=== PATIENT | female | born 1965 | race Caucasian/White ===

== ENCOUNTER 2018-08-14 13:39 | Emergency (ER) | payer OTHER ==
[~2018-08-14] VITALS: Ht 165.1 cm; Wt 59.0 kg
[2018-08-14 13:47] VITALS: BP 150/108
--- NOTE | 2018-08-14 13:58 | NUR ---
53 Y F BIB EMS C/O BILAT EYE PAIN, BLURRY VISION, AND REDNESS S/P BEING PEPPER SPRAYED BY FLOOR ASSEMBLER APPROX 30 MINS POSITION CLASSIFICATION MANAGER. INCONTINENT TO STOOL. BILAT EYES IRRIGATED BY EMS WITH 0.9% NS 300 ML. VSS. [id number]. BED IS DOWN, LOCKED, BED RAIL X 1, ERMD NOTIFIED. HX: ANXIETY RX: DENIES
--- NOTE | 2018-08-14 14:12 | NUR ---
ENCOURAGED PT TO GO TO BATHROOM AND WASH FACE WITH COPIOUS AMOUNT OF WATER. ALSO TO WASH SELF SHE HAD BM INCONTINENCE----AMBULATED TO RESTROOM WITH STEADY GAIT. ALMOST IMMENDIATELY WALKED RIGHT BACK OUT AND STATED SHE WILL NOT USE REGULAR WATER, "SHE NEEDS SPECIAL WATER THE FIREMEN USED". SALINE BOTTLE HANDED TO PT AND REFUSED AGAIN--- BRASS BOBBIN WINDER AT BEDSIDE SPEAKING WITH PT.
--- NOTE | 2018-08-14 14:19 | NUR ---
PAPER SCRUBS HANDED TO PT---REFUSING TO WASH, STATING SHE NEEDS ANTIBIOTICS
[2018-08-14] MEDS ORDERED: IBUPROFEN 600 MG TAB PO ONE (14:20)
--- NOTE | 2018-08-14 14:37 | NUR ---
HANDED PORTABLE PHONE UPON PT'S REQUEST.----PT REFUSES TO PUT ON PAPER SCRUBS SECURITY CALLED FOR CLEAN CLOTHING. PT REFUSING TO DISCHARGE STATED SHE SHOULD BE IN OBSERVATION FOR AT LEAST 2 HRS PROVIDOR NOTIFIED.
--- NOTE | 2018-08-14 14:44 | NUR ---
INSTRUCTED PT TO WASH WITH SOAP AND WATER AT HOME ---ALLOW FRESH AIR TO SOOTH FACE IF NECESSARY----AVOID FURTHER PEPPER SPRAY DC INSTRUCTIONS HANDED TO PT. PT REFUSED TO SIGN DC-- SECURITY AT BEDSIDE PT DEMANDED ANTIBIOTICS FOR FACE AND AT LEAST 2 HRS OF OBSERVATION
[2018-08-14 15:08] VITALS: BP 142/92
--- NOTE | 2018-08-14 15:09 | NUR ---
ESCORTED TO [facility] BY SECURITY---ALLOWED TO USE PHONE FOR TRANSPORTATION
== END 2018-08-14 17:24 | disposition home or self-care (01) ==
LOC: MED 13:39
DX: L24.5 Irritant contact dermatitis due to other chemical products (principal); Z88.2 Allergy status to sulfonamides
CPT/HCPCS: 99283

== ENCOUNTER 2018-12-07 20:31 | Emergency (ER) | payer MEDICAID, OTHER ==
[~2018-12-07] VITALS: Ht 165.1 cm; Wt 58.1 kg
[2018-12-07 20:33] VITALS: BP 124/90
--- NOTE | 2018-12-07 20:33 | NUR ---
PT PLACED INTO W/C AND SENT TO ER LOBBY TO WAIT FOR A BED.
--- NOTE | 2018-12-07 20:39 | NUR ---
PATIENT SPOKE TO ER ADMITTING, GOT UP FROM W/C AND LEFT ER LOBBY AND STATED "I'M GOING TO ANOTHER HOPSITAL." PATIENT LEFT WITHOUT BEING SEEN BY DR. MCCORMACK. NO FURTHER CARE PROVIDED FOR PATIENT.
== END 2018-12-07 20:39 | disposition left against medical advice (07) ==
LOC: MED 20:31
DX: R51 Headache (principal); Z53.21 Procedure and treatment not carried out due to patient leaving prior to being seen by health care provider

== ENCOUNTER 2019-08-08 07:28 | Emergency (ER) | payer MEDICAID ==
[~2019-08-08] VITALS: Ht 165.1 cm; Wt 56.7 kg
--- NOTE | 2019-08-08 07:28 | NUR ---
Patient BIBA BLS, transferred to bed 5. RN evaluating patient at bedside.
[2019-08-08 07:32] VITALS: BP 172/110
--- NOTE | 2019-08-08 07:39 | NUR ---
63/f biba c/o left facial pain & swelling. PT REPORTS "I WAS SPRAYED WITH PESTITCIDES TO MY FACE AND I HAVE BEEN POSIONED FROM IT AND IM SAVING THE REST FOR COURT" DENIES SI/HI. PATIENT STATES PAIN OF 03/07 AT THIS TIME. BP 172/110, o2 sat 100% at this time. PATIENT POSITIONED FOR COMFORT; HOB ELEVATED; BEDRAILS UP X2; BED DOWN. ER MADE AWARE OF PT STATUS. Addendum: 08/08/19 at 0744 by MED1 PT REPORTED SHE USED METH X YESTERDAY.
--- NOTE | 2019-08-08 07:56 | NUR ---
Patient being evaluated by DR JAIN at bedside.
[2019-08-08] MEDS ORDERED: methylPREDNISolone SS 125 MG/2 ML VIAL ONE (08:08)
[2019-08-08] MEDS: diphenhydrAMINE 50 MG/ML VIAL IM ONE (08:20)
[2019-08-08] MEDS: methylPREDNISolone SS 125 MG in WATER STERILE 2 ML IM ONE (08:26)
[2019-08-08] MEDS: KETOROLAC 60 MG/2 ML VIAL IM ONE (08:26)
--- NOTE | 2019-08-08 08:26 | NUR ---
medicated benadryl, solumedrol & toradol IM.
--- NOTE | 2019-08-08 09:18 | NUR ---
Patient appears to be SLEEPING comfortably in bed. Respirations even and unlabored.WILLCONTINUE TO MONITOR
--- NOTE | 2019-08-08 10:14 | NUR ---
FOOD TRAY PROVIDED FOR PATIENT AT THIS TIME. Addendum: 08/08/19 at 1023 [facility]. TJ N/V.
--- NOTE | 2019-08-08 10:37 | NUR ---
Patient discharged with v/s stable. Written and verbal after care instructions given and explained. Patient alert, oriented and verbalized understanding of instructions. Ambulatory with steady gait. All questions addressed prior to discharge. ID band removed. Patient advised to follow up with PMD. Rx of BENADRYL, AUGMENTIN, MOTRIN & PREDNISONE given. Patient educated on indication of medication including possible reaction and side effects. Opportunity to ask questions provided and answered.
[2019-08-08 10:38] VITALS: BP 131/81
== END 2019-08-08 10:37 | disposition home or self-care (01) ==
LOC: EDUNIT# 07:28 → MED 07:28
DX: L02.01 Cutaneous abscess of face (principal); F15.10 Other stimulant abuse, uncomplicated; Z88.2 Allergy status to sulfonamides; Z98.890 Other specified postprocedural states
CPT/HCPCS: 96372; 99284; J1200; J1885; J2930

== ENCOUNTER 2019-08-10 15:50 | Emergency (ER) | payer MEDICAID ==
[~2019-08-10] VITALS: Ht 165.1 cm; Wt 70.3 kg
--- NOTE | 2019-08-10 15:51 | NUR ---
PT. BIBA TAKEN TO BED 5
[2019-08-10 15:54] VITALS: BP 140/72
--- NOTE | 2019-08-10 16:00 | NUR ---
PT WAS B/B AMBULANCE FROM HOME FOR SI. PER JUNIOR ESTIMATOR, PT SPAY HERSELF, HAS WIRED BEHAVIOR. PT HAS PSCYCH HX. PD WAS ON SCENE AND PUT ON 5150. PT WAS A/OX4. FOLLOWS COMMAND, DENIES ANY PHYSICAL DISTRESS. PT WAS PUT ON BED 5, ALL CLOTHES WAS OFF AND TAKEN AWAY. PT IS QUIT AND COOPERATIVE. CO HUNGRY ONLY. SANDWITHC WAS OFFERED TO PT.
--- NOTE | 2019-08-10 16:06 | NUR ---
LAB AT BEDSIDE.
[2019-08-10 16:21] LABS: BASOPHILS % (AUTO) 0.6 % (0.0-2.0); EOSINOPHILS # (AUTO) 0.3 K/uL (0-0.4); EOSINOPHILS % (AUTO) 5.2 % (0.0-4.0); HEMATOCRIT 43.7 % (36-48); HEMOGLOBIN 14.4 g/dL (12.0-16.0); LYMPHOCYTES # (AUTO) 2.3 K/uL (2.5-16.5); LYMPHOCYTES % (AUTO) 34.7 % (20.5-51.1); MEAN CORPUSCULAR HEMOGLOBIN 29 pg (27-31); MEAN CORPUSCULAR HGB CONC 33 g/dL (33-37); MEAN CORPUSCULAR VOLUME 88.8 fL (80-94); MONOCYTES # (AUTO) 0.6 K/uL (0.8-1.0); MONOCYTES % (AUTO) 8.9 % (1.7-9.3); NEUTROPHILS # (AUTO) 3.4 K/uL (1.8-7.7); NEUTROPHILS % (AUTO) 50.6 % (42.2-75.2); PLATELET COUNT (AUTO) 429 K/uL (140-450); RED BLOOD CELL COUNT(AUTO) 4.91 MIL/uL (4.20-5.40); RED CELL DISTRIBUTION WIDTH 13.5 % (11.6-13.7); WHITE BLOOD COUNT (AUTO) 6.7 K/uL (4.8-10.8)
[2019-08-10 16:43] LABS: ALBUMIN 3.4 g/dL (3.4-5.0); ANION GAP 11.9 (8-16); ASPARTATE AMINOTRANSFERASE 26 U/L (15-37); CARBON DIOXIDE 30.8 mmol/L (21-32); CHLORIDE 103 mmol/L (98-107); CREATININE 0.9 mg/dL (0.6-1.3); GFR ARICAN-AMERICAN 84 mL/min (>90); GLUCOSE 92 mg/dL (74-106); POTASSIUM 3.7 mmol/L (3.5-5.1); SODIUM SERUM 142 mmol/L (136-145); TOTAL BILIRUBIN 0.5 mg/dL (0.0-1.0); UREA NITROGEN, BLOOD 15 mg/dL (7-18)
[2019-08-10 16:46] LABS: SALICYLATE < 2.8 mg/dL (2.8-20.0)
[2019-08-10 16:47] LABS: ACETAMINOPHEN < 0.5 ug/ml (10-30)
--- NOTE | 2019-08-10 17:29 | NUR ---
WATER OFFERED TO PT TO DRINK. URINE SAMPLE COLLECTED AND SENT TO LAB.
[2019-08-10 18:05] LABS: BARBITURATE, URINE NEGATIVE ng/ml (NEG <=200)
[2019-08-10 18:06] LABS: BENZODIAZEPINE, URINE NEGATIVE ng/mL (NEG <=200); CANNABINOID, URINE NEGATIVE ng/mL (NEG <=50); COCAINE, URINE NEGATIVE ng/mL (NEG <=300); OPIATE, URINE NEGATIVE ng/mL (NEG <=2000); PHENCYCLIDINE SCREEN,URINE NEGATIVE ng/mL (NEG <=25)
--- NOTE | 2019-08-10 18:45 | NUR ---
PT WAS ADMINISTERED WITH PAIN MEDICATION.
--- NOTE | 2019-08-10 18:53 | NUR ---
JACK OFFERED, PT ATE WELL THEN FALL INTO ASLEEPING.
--- NOTE | 2019-08-10 19:20 | NUR ---
received report from jessica mckay. will cont care at this time.
--- NOTE | 2019-08-10 19:39 | NUR ---
pt refusing telepsych and is getting agitated and shouting at er staff.
--- NOTE | 2019-08-10 19:48 | NUR ---
PT SPEAKING WITH TELEPSYCH AT THIS TIME.
--- NOTE | 2019-08-10 20:08 | NUR ---
PT OFFERED CARRIE AND CRACKERS AT THIS TIME
[2019-08-10 20:39] VITALS: BP 140/72
--- NOTE | 2019-08-10 20:39 | NUR ---
PT AGITATED WITH NEW INFORMATION FROM TELE PSYCH PLACING HER ON PSYCH-HOLD. PT EXITED THROUGH MAIN LOBBY AND LEFT FACILITY RUNNING IN [facility]. ATTEMPTS TO VERBALLY PERSUADE PT TO STAY WERE UNSUCCESSFUL. SECURITY NOTIFIED, VANESSA AYALA MADE AWARE @ 2034. Addendum: 08/10/19 at 2100 by YIMI ERROR CHARLEE AYALA
--- NOTE | 2019-08-10 20:40 | NUR ---
CHARLEE AYALA CALLED, PT LEFT ON FOOT OUT OF THE EMERGENCY DEPARTMENT.
--- NOTE | 2019-08-10 20:50 | NUR ---
CHARLEE AYALA FOUND PT AND TOOK INTO CUSTODY.
--- NOTE | 2019-08-10 20:55 | NUR ---
[place] PD IN ER, STATED THEY FOUND PT, REVIEWED THE 5150 HOLD AND PSYCH REPORT, AND MEDICAL CLEARANCE, GOMEZ NE TO TAKE PT.
--- NOTE | 2019-08-10 21:18 | NUR ---
pt belongings sent with ashok rubio
== END 2019-08-10 20:39 ==
LOC: MED 15:50
DX: R45.851 Suicidal ideations (principal); F41.9 Anxiety disorder, unspecified; F17.210 Nicotine dependence, cigarettes, uncomplicated; F12.90 Cannabis use, unspecified, uncomplicated; Z88.2 Allergy status to sulfonamides; Z71.6 Tobacco abuse counseling
CPT/HCPCS: 36415; 80053; 80305; 85025; 93005; 99285; G0480; G0482

== ENCOUNTER 2021-06-17 21:46 | Emergency (ER) | payer MEDICAID ==
[~2021-06-17] VITALS: Ht 165.1 cm; Wt 56.7 kg
[2021-06-17 22:50] VITALS: BP 136/90
--- NOTE | 2021-06-17 22:50 | NUR ---
to lobby a/w bed ambulatory
--- NOTE | 2021-06-18 | NUR ---
SEEN AND EXAMINED BY LEON
[2021-06-18] MEDS ORDERED: PRED20TA5 PO (00:13)
[2021-06-18] MEDS ORDERED: IBUP-2213 PO (00:13)
--- NOTE | 2021-06-18 00:20 | NUR ---
NASAL SWAB FOR NOVEL SENT TO LAB
[2021-06-18] MEDS ORDERED: ALBU0.0912 IH (00:24)
[2021-06-18 00:25] VITALS: BP 124/81
--- NOTE | 2021-06-18 00:25 | NUR ---
Patient discharged with v/s stable. Written and verbal after care instructions given and explained. Patient alert, oriented and verbalized understanding of instructions. Ambulatory with steady gait. All questions addressed prior to discharge. ID band removed. Patient advised to follow up with PMD. Rx of MOTRIN. PREDNISONE given. Patient educated on indication of medication including possible reaction and side effects. Opportunity to ask questions provided and answered.
== END 2021-06-18 00:25 | disposition home or self-care (01) ==
LOC: MED 21:46
DX: R06.02 Shortness of breath (principal); R07.9 Chest pain, unspecified; Z20.822 Contact with and (suspected) exposure to COVID-19
CPT/HCPCS: 71045; 99284; U0003

== ENCOUNTER 2021-09-22 08:47 | Inpatient (IN) | payer MEDICAID ==
[~2021-09-22] VITALS: Ht 165.1 cm; Wt 54.4 kg
[~2021-09-22 08:47] MED LIST: ALBU0.0912 IH; IBUP-2213 PO; PRED20TA5 PO
--- NOTE | 2021-09-22 08:49 | NUR ---
VINCENT ROTH TAKEN TO BED 10
--- NOTE | 2021-09-22 08:51 | NUR ---
RT at bedside for ABG draw
[2021-09-22 08:52] VITALS: BP 148/110
--- NOTE | 2021-09-22 09:00 | NUR ---
56 Y/O F BIBA FROM [facility] C/O DIFFICULTY BREATHING SINCE LAST NIGHT. PER EMS PT WAS 85% O2 ON ROOM AIR. CURRENTLY SATTING 97% ON 2LPM NC, BILATERAL LOWR LUNG BASES WITH DIMINISHED BREATH SOUNDS, UPPER LOBES CLEAR. RECENTLY DISCHARGED FROM [place] FOR UNK REASON, PT STATES THAT THEY HAD UTI. RSPIRATIONS EVEN THOUGH TACHYPNEIC, NOTED WITH SWELLING ABOVE RIGHT EYEBROW. PATIENT APPEARS AGITATED SPEAKING IN A FAST PACE, COOPERATIVE TO CARE , A/OX4. NON COMPLIANT WITH MEDS. PLACED ON CAFE ASSOCIATE, BED IN HIGH FOWLERS POSITION. MEDHX: ASTHMA, CHF ALLERGIES: SULFA DRUGS HOME MEDS: LASIX, ALBUTEROL
--- NOTE | 2021-09-22 09:16 | NUR ---
HANDED URINE, FLORA AND FLU SWABS TO SENOIA ENGLISH TEACHER
--- NOTE | 2021-09-22 09:30 | NUR ---
RAD AT BEDSIDE
--- NOTE | 2021-09-22 09:31 | NUR ---
DR SHAVER ASKED IF PT COULD GET SOME ICECHIPS, DR SHAVER STATED "YES", PT OFFFERED ICE CHIPS FOR DRY MOUTH
[2021-09-22 09:40] LABS: BASOPHILS # (AUTO) 0.1 K/uL (0.00-0.22); BASOPHILS % (AUTO) 0.9 % (0.0-2.0); EOSINOPHILS # (AUTO) 0.1 K/uL (0-0.4); EOSINOPHILS % (AUTO) 0.8 % (0.0-4.0); HEMATOCRIT 39.6 % (36-48); HEMOGLOBIN 12.7 g/dL (12.0-16.0); LYMPHOCYTES # (AUTO) 1.3 K/uL (2.5-16.5); LYMPHOCYTES % (AUTO) 18.2 % (20.5-51.1); MEAN CORPUSCULAR HEMOGLOBIN 28 pg (27-31); MEAN CORPUSCULAR HGB CONC 32 g/dL (33-37); MEAN CORPUSCULAR VOLUME 87.3 fL (80-94); MONOCYTES # (AUTO) 0.6 K/uL (0.8-1.0); MONOCYTES % (AUTO) 8.1 % (1.7-9.3); NEUTROPHILS # (AUTO) 5.3 K/uL (1.8-7.7); PLATELET COUNT (AUTO) 392 K/uL (140-450); RED BLOOD CELL COUNT(AUTO) 4.54 MIL/uL (4.20-5.40); WHITE BLOOD COUNT (AUTO) 7.3 K/uL (4.8-10.8)
[2021-09-22 09:41] LABS: APPEARANCE,URINE SL CLOUDY (CLEAR); BILIRUBIN,URINE 1+ (NEGATIVE); BLOOD, URINE NEGATIVE (NEGATIVE); COLOR,URINE YELLOW (YELLOW); LEUKOCYTE ESTERASE ,URINE TRACE (NEGATIVE); NITRITE, URINE NEGATIVE (NEGATIVE); PH,URINE 5.5 (5.0-9.0); UGLUCOSE NEGATIVE (NEGATIVE)
[2021-09-22 10:00] LABS: RBC,URINE 0-5 /HPF (0-5)
[2021-09-22 10:01] LABS: TRICHOMONAS,URINE None Seen /HPF (None Seen); YEAST,URINE None Seen /HPF (None Seen)
[2021-09-22 10:01] LABS: ALBUMIN 3.6 g/dL (3.4-5.0); ANION GAP 15.7 (8-16); CARBON DIOXIDE 20.2 mmol/L (21-32); POTASSIUM 3.9 mmol/L (3.5-5.1); TOTAL BILIRUBIN 0.7 mg/dL (0.0-1.0)
[2021-09-22 10:02] LABS: COARSE GRANULAR CASTS,URINE 0-10 /LPF (None Seen); FINE GRANULAR CASTS,URINE None Seen /LPF (None Seen); HYALINE CASTS, URINE 0-10 /LPF (None Seen); OTHER CASTS, URINE None Seen /LPF (None Seen); OTHER CRYSTALS,URINE None Seen /HPF (None Seen); RED BLOOD CELL CASTS,URINE None Seen /LPF (None Seen); TRIPLE PHOSPHATE CRYSTAL,UR None Seen /HPF (None Seen); URIC ACID CRYSTALS,URINE None Seen /HPF (None Seen); URINE AMORPHOUS URATE None Seen /HPF (None Seen); WAXY CASTS,URINE None Seen /LPF (None Seen)
[2021-09-22 10:13] LABS: BARBITURATE, URINE NEGATIVE ng/ml (NEG <=200)
[2021-09-22 10:14] LABS: BENZODIAZEPINE, URINE POSITIVE ng/mL (NEG <=200); CANNABINOID, URINE NEGATIVE ng/mL (NEG <=50); COCAINE, URINE NEGATIVE ng/mL (NEG <=300); OPIATE, URINE NEGATIVE ng/mL (NEG <=2000); PHENCYCLIDINE SCREEN,URINE NEGATIVE ng/mL (NEG <=25)
--- NOTE | 2021-09-22 10:27 | NUR ---
DR SHAVER AT BEDSIDE
[2021-09-22] MEDS ORDERED: ALBUTEROL 0.083% 2.5 MG/3 ML NEBU INH ONE (10:30)
[2021-09-22] MEDS ORDERED: IPRATROPIUM 0.02% 0.5 MG/2.5 ML NEBU INH ONE (10:30)
--- NOTE | 2021-09-22 10:35 | NUR ---
RECEIVED ORDER TO ADMINISTER BREATHING TX TO BED #10. I ENTERED THE ROOM INTRODUCED MYSELF TO THE PATIENT AND CONFIRMED PATIENT IDENTITY. MS. GAMBOA, ALLOWED ME TO PLACE THE NEBULIZER ON HER, AFTER APPROXIMATELY 1 MIN, MS. GAMBOA BECAME VERY AGITATED AND WANTED TO SPEAK TO THE DR, BECAUSE THE PARAMEDICS HAD TOLD HER SHE SHOULDN'T HAVE A BREATHING TREATMENT. I EXPLAINED TO MS. GAMBOA, THE DR WAS THE ONE WHO ORDED THE TREATMENT FOR HER. MS. GAMBOA BECAME PROGRESSIVELY MORE AGITATED, AND ANGRY ABOUT THE BREATHING TREATMENT. AN ON AWAKE COUNSELOR ENTERED THE ROOM AT WHICH TIME MS. GAMBOA RIPPED OFF THE NEBULIZER, AND TOLD ME, "IF MRSA WAS IN HER RESPIRATORY IT WAS MY FAULT." I NOTIFIED DR. FALK AND THE PTS RN OF THE PT'S AGITATION AND TREATMENT REFUSAL. PT IS IN NO DISTRESS
[2021-09-22] MEDS ORDERED: DOCUSATE SODIUM 100 MG GELCAP PO PRN (10:50)
[2021-09-22] MEDS ORDERED: ACETAMINOPHEN 325 MG TAB PO PRN (10:50)
[2021-09-22] MEDS ORDERED: ONDANSETRON 4 MG/2 ML VIAL IM/IVP PRN (10:50)
[2021-09-22] MEDS ORDERED: ASPIRIN 325 MG TAB PO ONE (10:55)
[2021-09-22] MEDS ORDERED: FUROSEMIDE 40 MG/4 ML VIAL IVP SCH (10:55)
[2021-09-22] MEDS ORDERED: CARV3.12 PO (11:10)
[2021-09-22] MEDS ORDERED: PRED10TA5 PO (11:10)
[2021-09-22] MEDS ORDERED: BACITRACIN OINT 15000 UNITS/30 GM TUBE TP SCH (11:10)
[2021-09-22] MEDS ORDERED: BACITRACIN OINT 500 UNITS/GM PKT TP ONE (11:22)
[2021-09-22] MEDS ORDERED: BACITRACIN OP OINT 500 UNITS/GM 3.5 GM TUBE OP SCH (11:25)
[2021-09-22] MEDS ORDERED: OLANZapine 5 MG ODT PO ONE (11:25)
[2021-09-22 11:29] LABS: MAGNESIUM 2.5 mg/dL (1.8-2.4); PHOSPHORUS 4.6 mg/dL (2.5-4.9)
[2021-09-22 11:37] LABS: PROTHROMBIN TIME 11.3 secs (10.8-13.4)
[2021-09-22] MEDS ORDERED: CARV6.25 PO (11:39)
[2021-09-22] MEDS ORDERED: FURO-572 PO (11:39)
[2021-09-22] MEDS ORDERED: ASPI-1822 PO (11:39)
[2021-09-22] MEDS ORDERED: PRED20TA5 PO (11:39)
[2021-09-22] MEDS ORDERED: ALBU1.25 NEB (11:39)
[2021-09-22 11:55] LABS: THYROID STIMULATING HORMONE 0.17 uIU/mL (0.34-3.74)
--- NOTE | 2021-09-22 11:57 | NUR ---
Patient will be admitted to care of RAH WATKINS. Admited to TELEMETRY. Will go to room 105A. Belongings list completed. Report to PARTHA BONNER.
--- NOTE | 2021-09-22 12:13 | NUR ---
PT TRANSFERRED TO [facility] 105A. PT AMBULATORY, 4L NC SATING AT 97%. PT REFUSED LAB DRAWS BY FINANCIAL SALES REPRESENTATIVE. PT IS HOMELESS. NO S/S OF DISTRESS. PT SWABBED FOR MRSA. PT STATES SHE HAS MRSA IN SMALL SCRATCH AT LEFT BROW LINE. PT APPLIED TAPE TO BROW. CALL LIGHT IN REACH. ALL SAFETY MEASURES IN PLACE. NOTIFIED MD FOR ORDER FOR DIET.
--- NOTE | 2021-09-22 12:30 | NUR ---
PT HAS SCRATCH OVER LEFT EYE BROW. PT WILL NOT LET NURSES INSPECT OR BANDAGE.
--- NOTE | 2021-09-22 12:30 | NUR ---
PT HAS SCR
--- NOTE | 2021-09-22 13:11 | NUR ---
RECEIVED CALL FROM [employer]. RELAYED THAT PT LACTIC ACID IS 2.2. REPORTED CRITICAL VALUE TO DR. AARON, AND REPLIED TO PAGE RT. RELAYED THE MESSAGE TO FRANCESCA.
[2021-09-22] MEDS ORDERED: ALBUTEROL 0.083% 2.5 MG/3 ML NEBU INH PRN (13:35)
[2021-09-22 16:00] VITALS: BP 127/86
--- NOTE | 2021-09-22 16:20 | NUR ---
PT WAS FOUND YELLING AT HALLUCINATIONS AND HAD THROWN ALL BELONGINGS AND FOOD TRAY ON FLOOR. WILL NOTIFY MD, AND RECOMMEND PSYCH CONSULT
[2021-09-22] MEDS: FUROSEMIDE 20 MG/2 ML VIAL IVP SCH (17:00)
--- NOTE | 2021-09-22 17:25 | NUR ---
PT HALLUCINATING. PT STATED A MAN WAS TELLING HER SHE COULD NOT HAVE ANYTHING TO EAT AND WOULD NOT LET HER HAVE OXYGEN. PT HAD REMOVED NC. REAPPLIED NC AND REENFORCED EDUCATION ON WEARING NC PROPERLY. PT HAS REFUSED LAB DRAWS AND RESPIRATORY TREATMENTS TODAY. CALL LIGHT IN REACH. ALL SAFETY MEASURES IN PLACE
[2021-09-22] MEDS: LORazepam 2 MG/ML VIAL IM/IVP PRN (18:13)
--- NOTE | 2021-09-22 18:15 | NUR ---
GAVE ATIVAN PER DR'S ORDER. REPOSITIONED PT'S NC.
--- NOTE | 2021-09-22 19:00 | NUR ---
TELEPSYCH INFORMED OF NEW CONSULT. WAITING FOR APPOINTMENT TIME, WILL ENDORSE TO FRENCH EDGE OPERATOR
--- NOTE | 2021-09-22 19:31 | NUR ---
ENDORSED PT TO COAL PULVERIZING OPERATOR NURSE.
--- NOTE | 2021-09-22 19:35 | NUR ---
PATIENT'S BROTHER ASHVIN - TEL NO.: [phone] - BUT WHEN I CONFIRM THIS TO THE PT SHE SAID SHE CAN'T REMEMBER - WILL ENDORSE .
--- NOTE | 2021-09-22 19:40 | NUR ---
U/A - UTI - LACTIC ACID HIGH - WILL REFER TO DR. GUNDERSON . Addendum: 09/23/21 at 0819 by Gertrudis Olivo RN PER Lolis GUNDERSON - ILIANA 1 GRM TIV OD - WILL CARRY OUT .
[2021-09-22 20:00] VITALS: BP 90/60
[2021-09-22] MEDS: lisinopriL 10 MG TAB PO SCH (21:00)
[2021-09-22] MEDS ORDERED: cefTRIAXone 1,000 MG VIAL ONE (21:00)
[2021-09-22] MEDS ORDERED: LORazepam 1 MG TAB PO PRN (21:20)
--- NOTE | 2021-09-22 21:35 | NUR ---
PER PSYCH DR - IF PT IS TOO SLEEPY BEC. SHE GOT ATIVAN - THE DOCTOR WILL DO VIDEO VITALIY . AM - WILL ENDORSE .
[2021-09-23] VITALS: BP 122/85
--- NOTE | 2021-09-23 | NUR ---
PT IS ON LABORED BREATHING - O2 SAT WNL - ON CLOSELY WATCH .
[2021-09-23] MEDS: LORazepam 2 MG/ML VIAL IM/IVP PRN ×2 (03:48→19:46)
[2021-09-23 04:00] VITALS: BP 130/66
--- NOTE | 2021-09-23 05:17 | NUR ---
PT ON LABORED BREATHING - PER RT - WILL PUT ON BIPAP - WILL INFORM MD .
--- NOTE | 2021-09-23 05:17 | NUR ---
PT WAS FOUND SLEEPING AND PRESENTING W/ RETRACTIONS ON 3LNC (SPO2 100%) NIV WAS INITIATED DUE TO INCR WOB PT WAS PLACED ON AVAPS 400 +5 10-18 f16 28% WITH SPO2 97% RETRACTIONS APPEARED TO IMPROVE/RESOLVE WITH NIV BIPAP PLUGGED INTO RED OUTLET WITH ALARMS ON AND AUDIBLE WILL CONTINUE TO MONITOR
[2021-09-23 05:52] LABS: BASOPHILS % (AUTO) 0.3 % (0.0-2.0); EOSINOPHILS # (AUTO) 0.1 K/uL (0-0.4); EOSINOPHILS % (AUTO) 1.4 % (0.0-4.0); HEMATOCRIT 39.4 % (36-48); HEMOGLOBIN 12.9 g/dL (12.0-16.0); LYMPHOCYTES # (AUTO) 1.4 K/uL (2.5-16.5); LYMPHOCYTES % (AUTO) 17.7 % (20.5-51.1); MEAN CORPUSCULAR HEMOGLOBIN 28 pg (27-31); MEAN CORPUSCULAR HGB CONC 33 g/dL (33-37); MEAN CORPUSCULAR VOLUME 86.6 fL (80-94); MONOCYTES % (AUTO) 12.7 % (1.7-9.3); NEUTROPHILS # (AUTO) 5.2 K/uL (1.8-7.7); NEUTROPHILS % (AUTO) 67.9 % (42.2-75.2); PLATELET COUNT (AUTO) 397 K/uL (140-450); RED BLOOD CELL COUNT(AUTO) 4.54 MIL/uL (4.20-5.40); RED CELL DISTRIBUTION WIDTH 16.8 % (11.6-13.7); WHITE BLOOD COUNT (AUTO) 7.6 K/uL (4.8-10.8)
[2021-09-23 05:58] LABS: ALBUMIN 3.3 g/dL (3.4-5.0); ANION GAP 13.5 (8-16); CARBON DIOXIDE 26.4 mmol/L (21-32); CREATININE 1.3 mg/dL (0.6-1.3); MAGNESIUM 2.4 mg/dL (1.8-2.4); PHOSPHORUS 5.2 mg/dL (2.5-4.9); POTASSIUM 3.9 mmol/L (3.5-5.1); TOTAL BILIRUBIN 0.3 mg/dL (0.0-1.0)
--- NOTE | 2021-09-23 06:49 | NUR ---
PT REMOVED THE BI PAP MASK AND SHE REFUSED TO PUT IT BACK - I EXPLAIN TO HER THE IMPORTANCE OF IT - BUT PT. STILL REFUSING TO PUT IT BACK THE BI PAP MASK - WILL REFER TO RT .
--- NOTE | 2021-09-23 06:49 | NUR ---
CALLED TO PT ROOM MULTIPLE TIMES DUE TO PT REMOVING BIPAP MASK, PT REFUSING TO WEAR BIPAP AT THIS TIME. PT PLACED ON 2L NC SPO2 97% WILL CONTINUE TO MONITOR.
--- NOTE | 2021-09-23 07:00 | NUR ---
INFORMED DR. GUNDERSON RT PUT PT. ON BI PAP - WAITING THE RESPONSE
--- NOTE | 2021-09-23 07:30 | NUR ---
ENDORSED - PT - STABLE PT IS NOW ON O2 NC AT 4LPM - DUE TO PT IS VERY UNCOOPERATIVE TO BI PAP TXT - PER RT - PUT BACK PT ON NASAL CANULLA - BUT CLOSELY WATCH . BI PAP ON STANDBY . - O2 SAT 97 % - ENDORSED .
--- NOTE | 2021-09-23 07:30 | NUR ---
RECEIVED REPORT FROM BOOKING OFFICER NURSE. NO S/S OF DISTRESS. CALL LIGHT IN REACH. ALL SAFETY MEASURES IN PLACE
[2021-09-23 08:00] VITALS: BP 129/98
[2021-09-23] MEDS: FUROSEMIDE 20 MG/2 ML VIAL IVP SCH ×2 (08:45→17:05)
[2021-09-23] MEDS: lisinopriL 10 MG TAB PO SCH ×2 (08:46→20:16)
--- NOTE | 2021-09-23 10:21 | NUR ---
MINE EXPLORATION ENGINEER JOHN AT BEDSIDE. PT PROVIDED WITH BEDPAN DURING PROCEDURE. NO S/S OF DISTRESS. CALL LIGHT IN REACH. ALL SAFETY MEASURES IN PLACE
--- NOTE | 2021-09-23 11:00 | NUR ---
DC PLANNING LATE ENTRY PATIENT IS A 56-YEAR-OLD FEMALE ADMITTED IN THE [facility]/ED ON 09/22/2021 DUE TO SHORTNESS OF BREATH. PATIENT HAS HX. OF ASTHMA, HYPERTENSION AND SUBSTANCE ABUSE. SW MEET WITH PATIENT AT BEDSIDE TO DISCUSS AND GATHER HER COLLATERAL INFORMATION. PATIENT WAS AWAKE AND ALERT AND ABLE TO PROVIDE HER INFO. PER PATIENT SHE IS HOMELESS FOR A WHILE AND IS BEEN ABLE TO STAY WITH HIS FRIEND KANWAL BRANDT IN [facility] PER PATIENT SHE DO NOT HAVE FAMILY SUPPORT BUT STATED THAT HER FRIEND KARLY SCHOFIELD IS HER EMERGENCY CONTACT PATIENT DECLINED A.D. INFORMATION PROVIDED BY SALO. PER PATIENT SHE HAS NO ASSISTANCE FROM FAMILY DUE TO HAVING FAMILY DISCORD ABOUT HER WAY OF LIFE AND SUBSTANCE ABUSE. PER PATIENT SHE HAS GOT IN CONTACT WITH A FRIEND THAT IS ASSISTING HER ON GETTING INTO A SOBER LIVING HOME IN [facility] FOR AFTER SHE IS DISCHARGE. PATIENT STATED THAT SHE LIKES [place] AND THAT IS WHY SHE WILL LIKE TO LIVE THERE WHEN SHE IS READY FOR DC. PATIENT REPORTED HAVING A NO PCP AND GOING TO CLINICS AROUND THE AREA TO GET MEDICAL CARE, PATIENT REPORTED NO ISSUES GETTING OR TAKING HER MEDICATIONS AND NOT HAVING ANY DME AND BEEN ROD TO WALK INDEPENDENTLY ON HER OWN. SALO PROVIDED PATIENT WITH BASIC NEEDS INFORMATION PACKET AND A LIST OF HOMELESS RESOURCES. PATIENT TOOK SALO INFORMATION WELL LOW-COST HOUSING AND WILL BE CALLING TO FIND A USP IN ONE OF THE PLACES IN THE LIST OF RESOURCES THIS AUTOMATIC WASHER MECHANIC PROVIDED FOR HER. SALO ALSO PROVIDED RESOURCES FOR SUBSTANCE ABUSE AND FOOD MURRAY. SALO DISCUSSED WITH PATIENT ABOUT A FOLLOW UP APPOINTMENT NEEDED WITHIN 7 DAYS AFTER HIS DISCHARGE FROM [facility]. PATIENT AGREED AND STATED THAT SHE WILL MAKE HER OWN APPOINTMENTS AND DECLINED FOR SW TO MAKE HER APPOINTMENTS. PATIENT STATED THAT AT CO SHE WILL NEED A BUS PASS OR SOME TRANSPORTATION TO GET HOME AFTER HER DISCHARGE. SW WILL FOLLOW UP NEEDED.
[2021-09-23 12:00] VITALS: BP 128/94
--- NOTE | 2021-09-23 12:33 | NUR ---
PATIENT HAS BEEN SCREENED AND CATEGORIZED MODERATE NUTRITION RISK. PATIENT WILL BE SEEN WITHIN 3-5 DAYS OF ADMISSION. CONSULT FOR WOUNDS/PRESSURE INJURY NOT APPLICABLE [address]
--- NOTE | 2021-09-23 12:42 | NUR ---
DC PLANNING: THE PATIENT WAS BIBA FOR C/O SOB, H/O CHF WITH NONCOMPLIANCE TAKING MEDICATIONS. PATIENT WITH CURRENT USE OF METH AND TOBACCO, RECENTLY ADMITTED TO [facility] FOR SAME C/O. CXR SHOWS BILATERAL PLEURAL EFFUSIONS, TOX SCREEN POSITIVE FOR METH AND BENZOS. BNP 4520, LACTIC ACID 2.3 PATIENT GIVEN DUONEB TREATMENT, LASIX AND ASA IN ED, ADMITTED. ON 4L O2 NC, ROCEPHIN IV, LASIX IV, BREATHING TREATMENTS. ORDERS FOR US GUIDED THORACENTESIS, CONSULTS ORDERED WITH PSYCHIATRY, PULMONOLOGY AND CARDIOLOGY. CM SPOKE WITH THE PATIENT AT BEDSIDE, CONFIRMED THAT SHE HAS BEEN LIVING AT THE ADDRESS LISTED ON THE FACE SHEET. SHE STATES THAT IT IS A FRIENDS HOUSE, [place] [address] AND THAT SHE CAN RETURN THERE WHEN DC'D. SHE ALSO STAYS WITH ANOTHER FRIEND AT TIME, KARLY SCHOFIELD WHO IS LISTED A CONTACT ON THE FACE SHEET. THE PATIENT DOES NOT HAVE A CELL PHONE OR TRISH LINE. SHE IS INDEPENDENT WITH ACTIVITIES BUT STATES SHE'S BEEN HAVING TROUBLE WALKING. THE PATIENT ALSO STATES THAT SHE IS GOING TO GO TO SOBER LIVING BUT WAS UNABLE TO STATE WHICH SOBER LIVING FACILITY SHE HASN'T CALLED TO SET IT UP. SHE STATES SHE WILL BE CALLING A FACILITY BUT WAS NOT SPECIFIC. THE PATIENT AT THIS POINT THEN STARTED FALLING ASLEEP AND WAS UNABLE TO CONTINUE THE CONVERSATION. BRADEN WILL FOLLOW. Addendum: 09/24/21 at 1251 by Ruby Murray CM DC PLANNING: PT S/P LEFT THORACENTESIS, 1.75 L PULLED OFF. PLAN FOR RIGHT THORACENTESIS, DC ON HOLD FOR TODAY, POSSIBLE DC IN AM. CM WILL FOLLOW.
--- NOTE | 2021-09-23 13:30 | NUR ---
RADIOLOGY COMPLETED THORACENTISIS. 1750 OUT. SPOKE TO RADIOLOGY TO ORDER CXR
--- NOTE | 2021-09-23 15:02 | NUR ---
FOLLOWED UP WITH TELEPSYCH. WAITING FOR APPOINTMENT TIME.
[2021-09-23] MEDS ORDERED: QUEtiapine FUMARATE 25 MG TAB PO PRN (15:45)
[2021-09-23 16:00] VITALS: BP 110/74
--- NOTE | 2021-09-23 18:46 | NUR ---
PROVIDED PT WITH FLUIDS. PT WAS YELLING, STATING "WHY WONT YOU HAND ME MY PHONE? HE JUST WALKED OUT OF HERE AND HE WONT GIVE ME MY STUFF?". NO ONE IS PRESENT IN PT ROOM. WHEN ASKED, PT STATED "HE WONT GIVE ME MY STUFF". NO MALE HAS ENTERED OR EXITED THE ROOM. ALL SAFETY MEASURES IN PLACE
--- NOTE | 2021-09-23 19:25 | NUR ---
ENDORSED PT TO COLOR ADVISER NURSE. PT STABLE
--- NOTE | 2021-09-23 19:30 | NUR ---
RECEIVED REPORT FROM DAY SHIFT NURSE FOR CONTINUITY OF CARE.PT ON BED, AGITATED. ON ROOM AIR.O2SAT AT 99%.NO S/SX OF RESPIRATORY DISTRESS.WILL GIVE PRN ATIVAN. CALL LIGHT IN REACH. ALL SAFETY MEASURES IN PLACE. WILL CONTIUE TO MONITOR.
[2021-09-23 20:00] VITALS: BP_SYST 109; BP_SYST 99; BP_DIAS 63
--- NOTE | 2021-09-23 20:30 | NUR ---
SCHEDULE MEDICATIONS GIVEN. PT TOLERATED WELL. NO DISTRESS NOTED.
[2021-09-24] VITALS: BP 109/63
--- NOTE | 2021-09-24 01:19 | NUR ---
PT ASLEEP. BREATHING EQUAL AND UNLABORED, NO S/SX OF RESPIRATORY DISTRESS. ALL PRECAUTIONS IN PLACE. WILL CONTINUE TO MONITOR.
[2021-09-24 04:00] VITALS: BP 106/70
[2021-09-24 05:55] LABS: ALBUMIN 2.7 g/dL (3.4-5.0); ANION GAP 15.6 (8-16); CARBON DIOXIDE 24.5 mmol/L (21-32); CREATININE 1.2 mg/dL (0.6-1.3); PHOSPHORUS 3.9 mg/dL (2.5-4.9); POTASSIUM 4.1 mmol/L (3.5-5.1); TOTAL BILIRUBIN 0.6 mg/dL (0.0-1.0)
--- NOTE | 2021-09-24 07:30 | NUR ---
RECEIVED REPORT FROM CONCIERGE RECEPTIONIST NURSE FOR CONTINUITY OF CARE. PT IS AOX4, ABLE TO MAKE NEEDS KNOWN. ON ROOM AIR. O2SAT AT 99%. NO S/SX OF RESPIRATORY DISTRESS. SKIN IS WARM, DRY, AND INTACT. IV SITE ON RAC 20G INTACT AND PATENT. DENIES PAIN AT THE MOMENT. PLAN OF CARE DISCUSSED. SAFETY PRECAUTIONS IN PLACE. CALL LIGHT IN REACH. WILL CONTINUE TO MONITOR.
[2021-09-24 08:00] VITALS: BP 91/70
[2021-09-24] MEDS: FUROSEMIDE 20 MG/2 ML VIAL IVP SCH (08:40)
[2021-09-24] MEDS ORDERED: lisinopriL 5 MG TAB PO SCH (09:00)
--- NOTE | 2021-09-24 09:15 | NUR ---
ALL SCHEDULED MEDS GIVEN. PT IS STABLE. NO DISTRESS NOTED. WILL CONTINUE TO MONITOR.
[2021-09-24] MEDS ORDERED: PRED5TAB8 PO (09:27)
[2021-09-24] MEDS ORDERED: FURO-572 PO (09:27)
[2021-09-24] MEDS ORDERED: CEPH-588 PO (09:28)
--- NOTE | 2021-09-24 10:01 | NUR ---
PT. REFUSED WOUND CARE CONSULT, REFUSE TO TURN AND HAVE SKIN ASSESSMENT DONE. OBSERVE LEFT EYEBROW DRY ABRASION, AREA DRY AND CLEAN, NO S/S OF INFECTION.
[2021-09-24] MEDS: LORazepam 2 MG/ML VIAL IM/IVP PRN (11:11)
[2021-09-24 12:00] VITALS: BP 92/54
[2021-09-24] MEDS ORDERED: CHLORHEXADINE GLUC 2% CLOTH TP SCH (13:00)
[2021-09-24] MEDS ORDERED: MUPIROCIN CA NASAL 2% 1GM TUBE NS SCH (13:00)
--- NOTE | 2021-09-24 13:00 | NUR ---
ALL SCHEDULED MEDS GIVEN. PT IS STABLE. NO DISTRESS NOTED. WILL CONTINUE TO MONITOR.
--- NOTE | 2021-09-24 15:30 | NUR ---
RADIOLOGY AT BEDSIDE SETTING UP PATIENT FOR RIGHT SIDE THORACENTESIS.
--- NOTE | 2021-09-24 15:45 | NUR ---
THERE'S A DELAY WITH THE PROCEDURE. WILL BE NOTIFIED BY RADIOLOGY WHEN PROCEDURE WOULD START.
[2021-09-24 16:00] VITALS: BP 96/69
[2021-09-24] MEDS: FUROSEMIDE 40 MG TAB PO SCH (16:55)
--- NOTE | 2021-09-24 17:00 | NUR ---
ALL SCHEDULED MEDS GIVEN. PT IS STABLE. NO DISTRESS NOTED. WILL CONTINUE TO MONITOR.
--- NOTE | 2021-09-24 17:29 | NUR ---
RADIOLOGIST AND US TECHS AT BEDSIDE. PREPARING PATIENT FOR THORACENTESIS
--- NOTE | 2021-09-24 17:40 | NUR ---
PT HAD PROCEDURE AT BEDSIDE - PT SHOWED LITTLE SIGNS OF RESPIRATORY DISTRESS AFTER FLUID DRAINED FROM LUNGS.
--- NOTE | 2021-09-24 17:52 | NUR ---
THORACENTESIS COMPLETED. 1350 ML OF FLUIDS WERE REMOVED. PT IS STABLE. NO DISTRESS NOTED. WILL CONTINUE TO MONITOR.
--- NOTE | 2021-09-24 18:10 | NUR ---
XR TECH AT BEDSIDE.
--- NOTE | 2021-09-24 19:35 | NUR ---
ENDORSED TO HEAD OF STORE OPERATIONS NURSE FOR CONTINUITY OF CARE. PT IS STABLE.
[2021-09-24 20:00] VITALS: BP 85/52
[2021-09-24 22:19] LABS: BASOPHILS % (AUTO) 0.2 % (0.0-2.0); EOSINOPHILS # (AUTO) 0.2 K/uL (0-0.4); HEMATOCRIT 44.9 % (36-48); HEMOGLOBIN 14.2 g/dL (12.0-16.0); LYMPHOCYTES # (AUTO) 1.6 K/uL (2.5-16.5); LYMPHOCYTES % (AUTO) 15.1 % (20.5-51.1); MEAN CORPUSCULAR HEMOGLOBIN 28 pg (27-31); MEAN CORPUSCULAR HGB CONC 32 g/dL (33-37); MEAN CORPUSCULAR VOLUME 88.9 fL (80-94); MONOCYTES # (AUTO) 0.9 K/uL (0.8-1.0); MONOCYTES % (AUTO) 8.8 % (1.7-9.3); NEUTROPHILS # (AUTO) 7.6 K/uL (1.8-7.7); NEUTROPHILS % (AUTO) 73.9 % (42.2-75.2); PLATELET COUNT (AUTO) 420 K/uL (140-450); RED BLOOD CELL COUNT(AUTO) 5.05 MIL/uL (4.20-5.40); RED CELL DISTRIBUTION WIDTH 17.4 % (11.6-13.7)
[2021-09-24 22:20] LABS: WHITE BLOOD COUNT (AUTO) 10.3 K/uL (4.8-10.8)
[2021-09-25] VITALS: BP 90/55
--- NOTE | 2021-09-25 00:18 | NUR ---
PATIENT AWAKE SLEEPY HAD THORACENTESIS 09/24/21 TOOK OUT 1350 OF FLUID PATIENT VERY TIRED, 09/23/21 TOOK OUT 1750 FLUID. PATIENT ON MONITOR SINUS SAT 98%. 02 ON 2 LITERS N/C. RECEIVED ROCEPHIN 1,000MG IVPB. HAS 20 GA IN RIGHT F.A. TEMP 98.5 NO SIGNS OF ACUTE DISTRESS.
[2021-09-25 04:00] VITALS: BP 100/55
[2021-09-25 06:15] LABS: BASOPHILS # (AUTO) 0.1 K/uL (0.00-0.22); BASOPHILS % (AUTO) 0.5 % (0.0-2.0); EOSINOPHILS # (AUTO) 0.3 K/uL (0-0.4); EOSINOPHILS % (AUTO) 2.8 % (0.0-4.0); HEMATOCRIT 42.1 % (36-48); HEMOGLOBIN 13.6 g/dL (12.0-16.0); LYMPHOCYTES # (AUTO) 1.5 K/uL (2.5-16.5); LYMPHOCYTES % (AUTO) 14.2 % (20.5-51.1); MEAN CORPUSCULAR HEMOGLOBIN 28 pg (27-31); MEAN CORPUSCULAR HGB CONC 32 g/dL (33-37); MEAN CORPUSCULAR VOLUME 86.7 fL (80-94); MONOCYTES # (AUTO) 1.2 K/uL (0.8-1.0); NEUTROPHILS # (AUTO) 7.2 K/uL (1.8-7.7); NEUTROPHILS % (AUTO) 70.5 % (42.2-75.2); PLATELET COUNT (AUTO) 388 K/uL (140-450); RED BLOOD CELL COUNT(AUTO) 4.85 MIL/uL (4.20-5.40); RED CELL DISTRIBUTION WIDTH 16.6 % (11.6-13.7); WHITE BLOOD COUNT (AUTO) 10.2 K/uL (4.8-10.8)
[2021-09-25 06:35] LABS: ALBUMIN 2.3 g/dL (3.4-5.0); ANION GAP 10.6 (8-16); CREATININE 1.1 mg/dL (0.6-1.3); PHOSPHORUS 3.9 mg/dL (2.5-4.9); POTASSIUM 4.6 mmol/L (3.5-5.1); TOTAL BILIRUBIN 0.5 mg/dL (0.0-1.0)
--- NOTE | 2021-09-25 07:20 | NUR ---
RECEIVED PT FROM DIGITAL MARKETING PROJECT MANAGER NURSE FOR CONTINUITY OF CARE. PT IS AWAKE IN BED. RESPIRATIONS EVEN AND UNLABORED ON 4L NC. NO DISTRESS NOTED. A&O2. IV AT RAC 20G, SALINE LOCK. CALL LIGHT WITHIN REACH. SAFETY PRECAUTIONS IN PLACE. WILL CONTINUE TO MONITOR.
[2021-09-25 08:00] VITALS: BP 98/69
[2021-09-25] MEDS: FUROSEMIDE 40 MG TAB PO SCH (08:44)
--- NOTE | 2021-09-25 08:46 | NUR ---
BP BELOW 100. HOLD BP MEDS. GIVEN LASIX.
--- NOTE | 2021-09-25 08:57 | NUR ---
DR CHAVIRA AT BEDSIDE. SPOKE TO PT REGARDING DISCHARGE PLAN.
[2021-09-25] MEDS ORDERED: lisinopriL 5 MG TAB PO SCH (09:00)
[2021-09-25] MEDS ORDERED: METOPROLOL SUCCINATE 50 MG TABER PO SCH (09:00)
--- NOTE | 2021-09-25 09:57 | NUR ---
(09/25/21) RD INITIAL ASSESSMENT COMPLETED PLEASE REFER TO NUTRITION ASSESSMENT UNDER CARE ACTIVITY FOR ESTIMATED NUTRITIONAL NEEDS. RD RECOMMENDATIONS: 1. CONTINUE CARDIAC DIET TOLERATED. 2. CONSULT RDN PRN. 3. RD WILL F/U 5-7 DAYS; LOW RISK. MASSIMO BAKER MS, RDN
--- NOTE | 2021-09-25 10:00 | NUR ---
PT IN BED, RESTING. BREATHING EVEN AND UNLABORED. NO SOB, NO COUGH OR WHEEZING. NURSE TRYING TO EXPLAIN DISCHARGE PAPERS AND INSTRUCTIONS UPON DISCHARGE. VERBALIZED UNDERSTANDING BUT REFUSED TO SIGN. PT STATED "I'M NOT GOING TO SIGN ANYTHING. GIVE A MINUTE TO CALM DOWN".
[2021-09-25 10:30] VITALS: BP 98/69
[2021-09-25 10:38] VITALS: BP 98/69
--- NOTE | 2021-09-25 11:00 | NUR ---
PT REQUESTED FOR CLOTHES AND STATED THAT SHE'LL GET READY TO GO. CALLED KARLY, HIS FRIEND, FOR TIME OF PICK-UP. PT STATED "HE'LL BE HERE IN ONE HR. LEAVE ALONE AND GIVE ME TIME TO GET DRESSED".
--- NOTE | 2021-09-25 12:00 | NUR ---
NURSES AT BEDSIDE. PT STATED "MY PICK-UP IS OUTSIDE WAITING." REMOVED IV CATHETER IS INTACT. REMOVED ID WRIST BAND. ALL PT BELONGINGS BROUGHT BY THE PT UPON DISCHARGE. PT WHEELED BY THE NURSES AND SECURITY OUTSIDE THE LOBBY. FRIEND KARLY IS NOT THERE YET. CONTACTED KARLY STATED "I'LL BE THERE IN 30 MINS." INFORMED PT AND ASKED TO LEAVE HER WAITING IN THE LOBBY. NURSES LEFT PT SITTING AT THE WHEELCHAIR INSIDE THE LOBBY. PT REFUSED TO SIT AT THE LOBBY CHAIR. PT IS STABLE.
== END 2021-09-25 12:05 | disposition home or self-care (01) | DRG 194 ==
LOC: MED 08:47 → MTU 10:53
PROVIDERS: ADMIT Family Medicine; ATTEND Family Medicine
PROC: 0W9B3ZZ Drainage of Left Pleural Cavity, Percutaneous Approach (ICD-10-PCS; principal; 2021-09-23)
PROC: 0W993ZZ Drainage of Right Pleural Cavity, Percutaneous Approach (ICD-10-PCS; 2021-09-24)
DX: I11.0 Hypertensive heart disease with heart failure (principal); J91.8 Pleural effusion in other conditions classified elsewhere; I42.0 Dilated cardiomyopathy; J45.901 Unspecified asthma with (acute) exacerbation; I50.43 Acute on chronic combined systolic (congestive) and diastolic (congestive) heart failure; N39.0 Urinary tract infection, site not specified; I34.0 Nonrheumatic mitral (valve) insufficiency; F15.159 Other stimulant abuse with stimulant-induced psychotic disorder, unspecified; Z20.822 Contact with and (suspected) exposure to COVID-19; F17.210 Nicotine dependence, cigarettes, uncomplicated; R09.02 Hypoxemia; Z79.899 Other long term (current) drug therapy; Z88.2 Allergy status to sulfonamides; Z79.52 Long term (current) use of systemic steroids; Z90.710 Acquired absence of both cervix and uterus; Z91.19 Patient's noncompliance with other medical treatment and regimen
CPT/HCPCS: 36415; 36600; 71045; 76604; 76942; 80053; 80305; 81001; 82803; 83605; 83735; 83880; 84100; 84443; 84484; 85025; 85610; 85730; 87040; 87070; 87075; 87081; 87086; 87205; 93005; 94640; 94660; 96374; 97163-GP; 97530; 99291; J0696; J1940; J2001; J2060; J7060; J7613; J7644; Q0092

== ENCOUNTER 2021-11-24 14:03 | Emergency (ER) | payer MEDICAID ==
[~2021-11-24] VITALS: Ht 165.1 cm; Wt 59.0 kg
[~2021-11-24 14:03] MED LIST changes: -ALBU0.0912 IH; +ALBU1.25 NEB; +ASPI-1822 PO; +CARV6.25 PO; +CEPH-588 PO; +FURO-572 PO; -IBUP-2213 PO; -PRED20TA5 PO; +PRED5TAB8 PO
[2021-11-24 14:04] VITALS: BP 108/67
--- NOTE | 2021-11-24 15:29 | NUR ---
BIB WHEELCHAIR FROM RADIOLOGY TO ER BED 5
--- NOTE | 2021-11-24 15:38 | NUR ---
Dr. Mejia evaluating patient at bedside.
[2021-11-24] MEDS ORDERED: traMADol 50 MG TAB PO ONE (15:50)
[2021-11-24] MEDS ORDERED: KETOROLAC 30 MG/ML VIAL IVP ONE (15:50)
[2021-11-24 16:24] LABS: BASOPHILS # (AUTO) 0.1 K/uL (0.00-0.22); BASOPHILS % (AUTO) 0.4 % (0.0-2.0); EOSINOPHILS % (AUTO) 0.1 % (0.0-4.0); HEMATOCRIT 37.7 % (36-48); LYMPHOCYTES # (AUTO) 1.2 K/uL (2.5-16.5); LYMPHOCYTES % (AUTO) 7.7 % (20.5-51.1); MEAN CORPUSCULAR HEMOGLOBIN 27 pg (27-31); MEAN CORPUSCULAR HGB CONC 32 g/dL (33-37); MEAN CORPUSCULAR VOLUME 83.2 fL (80-94); MONOCYTES # (AUTO) 0.8 K/uL (0.8-1.0); MONOCYTES % (AUTO) 5.3 % (1.7-9.3); NEUTROPHILS # (AUTO) 13.5 K/uL (1.8-7.7); NEUTROPHILS % (AUTO) 86.5 % (42.2-75.2); PLATELET COUNT (AUTO) 555 K/uL (140-450); RED BLOOD CELL COUNT(AUTO) 4.53 MIL/uL (4.20-5.40); RED CELL DISTRIBUTION WIDTH 16.5 % (11.6-13.7); WHITE BLOOD COUNT (AUTO) 15.5 K/uL (4.8-10.8)
[2021-11-24 16:43] LABS: ANION GAP 11.5 (8-16); CARBON DIOXIDE 26.3 mmol/L (21-32); CREATININE 0.9 mg/dL (0.6-1.3); POTASSIUM 3.8 mmol/L (3.5-5.1); TOTAL BILIRUBIN 0.4 mg/dL (0.0-1.0)
--- NOTE | 2021-11-24 16:48 | NUR ---
Attempted to start IV, patient is aggresive, unable to start line. Will try again later.
[2021-11-24] MEDS ORDERED: MORPHINE SULFATE 4 MG/ML SYR IVP ONE (18:00)
[2021-11-24 18:48] LABS: BILIRUBIN,URINE NEGATIVE (NEGATIVE); BLOOD, URINE NEGATIVE (NEGATIVE); COLOR,URINE YELLOW (YELLOW); LEUKOCYTE ESTERASE ,URINE 1+ (NEGATIVE); NITRITE, URINE NEGATIVE (NEGATIVE); UGLUCOSE NEGATIVE (NEGATIVE)
[2021-11-24 18:52] LABS: APPEARANCE,URINE HAZY (CLEAR)
[2021-11-24] MEDS ORDERED: DEXAMETHASONE 10 MG/ML VIAL IVP ONE (18:55)
--- NOTE | 2021-11-24 19:45 | NUR ---
TOOK REPORT FORM CHASTITY GUTIERREZ. PATIENT SCREAMING ACROSS ER.
[2021-11-24] MEDS ORDERED: DEXAMETHASONE 4 MG/ML VIAL ONE (20:20)
[2021-11-24] MEDS ORDERED: MORPHINE SULFATE 4 MG/ML SYR ONE (20:21)
[2021-11-24] MEDS ORDERED: DEXAMETHASONE 10 MG/ML VIAL ONE (20:22)
--- NOTE | 2021-11-24 20:32 | NUR ---
PATIETN TAKEN TO CT
--- NOTE | 2021-11-24 21:00 | NUR ---
PATIENT UPSET STATING "I NEED TO GET OUT OF HERE, I CANT BE IN THIS PLACE ANY LONGER"
[2021-11-24 21:47] LABS: BARBITURATE, URINE NEGATIVE ng/ml (NEG <=200); BENZODIAZEPINE, URINE NEGATIVE ng/mL (NEG <=200); CANNABINOID, URINE NEGATIVE ng/mL (NEG <=50); COCAINE, URINE NEGATIVE ng/mL (NEG <=300); OPIATE, URINE POSITIVE ng/mL (NEG <=2000); PHENCYCLIDINE SCREEN,URINE NEGATIVE ng/mL (NEG <=25)
[2021-11-24 22:18] LABS: RBC,URINE NONE SEEN /HPF (0-5)
[2021-11-24] MEDS ORDERED: ceFAZolin 1,000 MG VIAL ONE (22:52)
--- NOTE | 2021-11-24 23:00 | NUR ---
NINA SHOUTING OUT THE ROOM TO GIVE HER MEDS FOR GERD. STATED THAT SOMEONE BETTER GO IN THERE NOW
--- NOTE | 2021-11-24 23:00 | NUR ---
NINA TAKEN TO RR VIA W/C AND BACK TO BED 5
--- NOTE | 2021-11-25 00:20 | NUR ---
NINA STATING SHE DOESNT WANT TO WAIT TILL MORNING FOR TRANSPORTATION. STATING "IF YOU MOTHERFUCKERS DONT COME IN HERE, WATCH YOULL SEE WHAT TREVOR DO". TRIED CALMING MEASURES. PATIENT STATED SHES NOT WILLING TO WAIT.
--- NOTE | 2021-11-25 02:08 | NUR ---
ALEXANDRIAN UPSET STATING "I WANT MY MEDICATION PRESCRIPTION, AND WANT TO GET OUT OF HERE". MD MCGILL AT BEDSIDE TALKING TO PATIENT
[2021-11-25] MEDS ORDERED: TRAM50TA1 PO (02:16)
[2021-11-25] MEDS ORDERED: KETO10TA2 PO (02:16)
--- NOTE | 2021-11-25 02:16 | NUR ---
MD MCGILL EDUCATING AND EXPLAINING AMA PAPERS TO PATIENT AT THIS TIME. PATIENT REFUSED TO WAIT FOR TRANSPORT. STATED "IM JUST TIRED TO EATING TURKEY SANDWICHES AND EATING CRAKERS. I WANT TO GO HOME AND DRINK FOOD. I WANT TO SHOWER AT MY PLACE. IM GOING TO LOOK FOR A BETTER HOSPITAL. I DONT WANT TO GO TO [place]." PATIETN AWARE OF RISKS OF LEAVING.
--- NOTE | 2021-11-25 02:18 | NUR ---
AMA PAPERS SIGNED AND PLACED ON CHART.
--- NOTE | 2021-11-25 02:20 | NUR ---
IV removed, catheter intact and site benign. Applied folded 4x4 gauze and tape to stop bleeding.
[2021-11-25 02:25] VITALS: BP 112/78
--- NOTE | 2021-11-25 02:25 | NUR ---
Patient alert, oriented and verbalized understanding of instructions.Assisted with W/C. All questions addressed prior to discharge. ID band removed. Patient advised to follow up with PMD. Rx of KETOROLAC TROMETHAMINE AND TRAMADOL given. PATIENT LEFT AMA AND FORMED PLACED ON CHART.
--- NOTE | 2021-11-25 02:26 | NUR ---
Chart checked and completed.
== END 2021-11-25 02:25 | disposition left against medical advice (07) ==
LOC: MED 14:03
DX: S32.049A Unspecified fracture of fourth lumbar vertebra, initial encounter for closed fracture (principal); Z20.822 Contact with and (suspected) exposure to COVID-19; C79.81 Secondary malignant neoplasm of breast; N39.0 Urinary tract infection, site not specified; F15.90 Other stimulant use, unspecified, uncomplicated; R26.89 Other abnormalities of gait and mobility; R00.0 Tachycardia, unspecified; F41.9 Anxiety disorder, unspecified; J45.909 Unspecified asthma, uncomplicated; I50.9 Heart failure, unspecified; Z79.2 Long term (current) use of antibiotics; Z79.899 Other long term (current) drug therapy; Z79.82 Long term (current) use of aspirin; Z88.2 Allergy status to sulfonamides; W18.39XA Other fall on same level, initial encounter; Y92.89 Other specified places as the place of occurrence of the external cause; Y93.89 Activity, other specified; Y99.8 Other external cause status
CPT/HCPCS: 36415; 72080; 72131; 80053; 80305; 81001; 81025; 85025; 87086; 87426; 96365; 96375; 99285; J0690; J1100; J1885; J2270

== ENCOUNTER 2022-02-19 15:38 | Emergency (ER) | payer MEDICAID, OTHER ==
[~2022-02-19] VITALS: Ht 165.1 cm; Wt 52.6 kg
[~2022-02-19 15:38] MED LIST changes: +KETO10TA2 PO; +TRAM50TA1 PO
[2022-02-19 15:40] VITALS: BP 104/62
--- NOTE | 2022-02-19 15:45 | NUR ---
BIBA TO ER BED 4
--- NOTE | 2022-02-19 16:10 | NUR ---
56YR OLD FEMALE BIB EMS C/O SOB/TAMMY LEG PAIN. PT STATES SOB IS CHROIC , PAIN IN LOWER EXT X1DAY. PAIN LEVEL 10/10. PT HAS HX OF BREAST CA. L BREAST MASTECTOMY 8MONS AGO. PT IS A&OX4. NON AMBULATORY. PAIN RAIDIATES FROM LOWER EXT TO FLANK AREA. DENIES URINATION DIFFICULTY OR PAIN. DENIES CP , FEVER, N/V/D. SKIN IS WARM DRY . SWELLING TO LOWER BACK. PT IS ON BEDSIDE EXTERNAL RELATIONS MANAGER. SPO2 98% RA. SIDE RAILS UPX2. BED AT LOWEST POSITION. SULFA
--- NOTE | 2022-02-19 16:13 | NUR ---
DR MOORE AT BEDSIDE EVALUATING PT
[2022-02-19] MEDS ORDERED: NACL 0.9% 1,000 ML IV SCH (16:25)
[2022-02-19] MEDS ORDERED: cefTRIAXone 1,000 MG in DEXT 5% MINI-BAG PLUS 50 ML IV ONE (16:25)
[2022-02-19] MEDS ORDERED: MORPHINE SULFATE 4 MG/ML SYR IM ONE ×2 (16:45→22:20)
[2022-02-19 17:22] LABS: BASOPHILS % (AUTO) 1.1 % (0.0-2.0); EOSINOPHILS # (AUTO) 0.2 K/uL (0-0.4); EOSINOPHILS % (AUTO) 3.9 % (0.0-4.0); HEMATOCRIT 34.4 % (36-48); LYMPHOCYTES # (AUTO) 0.7 K/uL (2.5-16.5); LYMPHOCYTES % (AUTO) 16.7 % (20.5-51.1); MEAN CORPUSCULAR HEMOGLOBIN 24 pg (27-31); MEAN CORPUSCULAR HGB CONC 32 g/dL (33-37); MEAN CORPUSCULAR VOLUME 75.2 fL (80-94); MONOCYTES # (AUTO) 0.6 K/uL (0.8-1.0); MONOCYTES % (AUTO) 12.8 % (1.7-9.3); NEUTROPHILS # (AUTO) 2.9 K/uL (1.8-7.7); NEUTROPHILS % (AUTO) 65.5 % (42.2-75.2); PLATELET COUNT (AUTO) 500 K/uL (140-450); RED BLOOD CELL COUNT(AUTO) 4.57 MIL/uL (4.20-5.40); RED CELL DISTRIBUTION WIDTH 17.8 % (11.6-13.7); WHITE BLOOD COUNT (AUTO) 4.4 K/uL (4.8-10.8)
--- NOTE | 2022-02-19 17:25 | NUR ---
ATTEMPTED TO START IV, PT UPSET FOR MULTIPLE TRIES. DR MOORE AWARE AND WILL SPEAK WITH PT ON THE IMPORTANCE OF IV ACCESS.
[2022-02-19 17:38] LABS: ALBUMIN 2.6 g/dL (3.4-5.0); ANION GAP 14.6 (8-16); CARBON DIOXIDE 25.4 mmol/L (21-32); CREATININE 0.9 mg/dL (0.6-1.3); TOTAL BILIRUBIN 0.2 mg/dL (0.0-1.0)
--- NOTE | 2022-02-19 19:07 | NUR ---
DR WALDEN AT BEDSIDE FOR ULTRASOUND IV
--- NOTE | 2022-02-19 19:10 | NUR ---
DR WALDEN ATTEMPTED IV, SOON SHE INSERTED IV, PT WAS SCREAMING AND MOVED. IV INSERTION UNSUCCESSFUL
--- NOTE | 2022-02-19 21:00 | NUR ---
PT SIGNED AMA FORM. PT IS CALLING FOR A RIDE.
--- NOTE | 2022-02-19 23:15 | NUR ---
Patient does not wish to proceed with medical care recommended by DR WALDEN. Patient given information related to possible complications, up to and including , which could occur as a result of leaving hospital at this time. Patient verbalizes understanding of risks involved leaving against medical advice. Patient has signed AMA form.
== END 2022-02-19 20:55 | disposition left against medical advice (07) ==
LOC: MED 15:38
DX: C79.81 Secondary malignant neoplasm of breast (principal); R06.02 Shortness of breath; M54.50 Low back pain, unspecified; M79.604 Pain in right leg; M79.605 Pain in left leg; R00.0 Tachycardia, unspecified; J45.909 Unspecified asthma, uncomplicated; I50.9 Heart failure, unspecified; F17.200 Nicotine dependence, unspecified, uncomplicated; F15.90 Other stimulant use, unspecified, uncomplicated; Z79.899 Other long term (current) drug therapy; Z79.1 Long term (current) use of non-steroidal anti-inflammatories (NSAID); Z79.891 Long term (current) use of opiate analgesic; Z79.82 Long term (current) use of aspirin; Z88.2 Allergy status to sulfonamides; Z88.1 Allergy status to other antibiotic agents
CPT/HCPCS: 71045; 80053; 82550; 83605; 83880; 84484; 85025; 87040; 93005; 96372; 99285; J2270